=== PATIENT | female | born 1975 | race Caucasian/White ===

== ENCOUNTER 2016-10-19 19:23 | Emergency (ER) | payer MEDICARE, OTHER ==
[~2016-10-19] VITALS: Ht 160 cm; Wt 110.5 kg
[2016-10-19] MEDS ORDERED: BECL8.7A5 IH (20:17)
[2016-10-19] MEDS ORDERED: SIMV-259 PO (20:17)
[2016-10-19] MEDS ORDERED: TRAZ150 PO (20:17)
[2016-10-19] MEDS ORDERED: DIAZ10 PO (20:17)
[2016-10-19] MEDS ORDERED: GABA-531 PO (20:17)
[2016-10-19] MEDS ORDERED: TRAM50TA4 PO (20:17)
[2016-10-19] MEDS ORDERED: ASPI81 PO (20:17)
[2016-10-19 20:31] LABS: BASOPHILS % (AUTO) 0.4 % (0.0-2.0); EOSINOPHILS % (AUTO) 0 % (1.0-6.0); HEMATOCRIT 39.4 % (36-46); HEMOGLOBIN 12.9 g/dL (12.0-16.0); LYMPHOCYTES # (AUTO) 2.9 K/uL (1.0-4.8); LYMPHOCYTES % (AUTO) 29.8 % (22.0-44.0); MEAN CORPUSCULAR HEMOGLOBIN 27.1 pg (26.0-34.0); MEAN CORPUSCULAR HGB CONC 32.8 G/dL (31.0-37.0); MEAN CORPUSCULAR VOLUME 83 fL (80-100); MONOCYTES # (AUTO) 0.6 K/uL (0.1-1.0); NEUTROPHILS # (AUTO) 6.3 K/uL (1.8-7.7); NEUTROPHILS % (AUTO) 63.8 % (40.0-70.0); PLATELET COUNT (AUTO) 253 K/uL (150-450); RED BLOOD CELL COUNT(AUTO) 4.76 MIL/uL (4.00-5.20); RED CELL DISTRIBUTION WIDTH 14.7 % (11.5-14.5); WHITE BLOOD COUNT (AUTO) 9.9 K/uL (4.5-11.0)
[2016-10-19 20:42] LABS: ANION GAP 9 mmol/L (8-16); CALCIUM, TOTAL 9.3 mg/dL (8.8-10.5); CARBON DIOXIDE 29 mmol/L (22-29); CHLORIDE 102 mmol/L (98-107); CREATININE 0.85 mg/dL (0.60-1.30); GLOMERULAR FILTR. RATE CALC > 60 mL/min (>60); SODIUM SERUM 140 mmol/L (136-145); UREA NITROGEN, BLOOD 15 mg/dL (7-18)
[2016-10-19] MEDS ORDERED: KETOROLAC TROMETHAMINE 30 MG/ML VIAL IVP ONE (20:45)
[2016-10-19 20:51] LABS: PROTHROMBIN TIME 10.4 SEC (9.4-11.6)
[2016-10-19 21:03] LABS: B-TYPE NATRIURETIC PEPTIDE 8 pg/mL (0-100)
[2016-10-19 21:06] LABS: ALANINE AMINOTRANSFERASE 27 U/L (12-78); ALBUMIN 3.7 g/dL (3.4-5.0); ASPARTATE AMINOTRANSFERASE 19 U/L (15-37); BILIRUBIN,TOTAL 0.2 mg/dL (0.1-1.0); CREATINE KINASE MB 0.8 ng/mL (0-5); CREATINE KINASE, TOTAL 79 U/L (26-192); TOTAL PROTEIN, SERUM 7.3 g/dL (6.4-8.2)
[2016-10-19 21:25] LABS: APPEARANCE,URINE CLOUDY (CLEAR); GLUCOSE, URINE (UA) NEGATIVE (NEGATIVE); KETONES,URINE NEGATIVE (NEGATIVE); LEUKOCYTE ESTERASE ,URINE NEGATIVE (NEGATIVE); OCCULT BLOOD,URINE NEGATIVE (NEGATIVE); PROTEIN,URINE NEGATIVE (NEGATIVE)
[2016-10-19 21:27] LABS: ADD UA MICROSCOPIC NO
[2016-10-19 22:20] VITALS: BP 104/64
== END 2016-10-19 23:24 | disposition home or self-care (01) ==
LOC: EMS 19:26
DX: R09.1 Pleurisy (principal); E78.00 Pure hypercholesterolemia, unspecified; R61 Generalized hyperhidrosis; Z79.82 Long term (current) use of aspirin; Z88.5 Allergy status to narcotic agent; Z88.2 Allergy status to sulfonamides
CPT/HCPCS: 36415; 71010; 80053; 81003; 82550; 82553; 83880; 84484; 85025; 85379; 85610; 85730; 93005; 96374; 99285; J1885

== ENCOUNTER 2016-12-12 07:57 | Inpatient (IN) | payer MEDICARE, OTHER ==
[~2016-12-12] VITALS: Ht 160 cm; Wt 106.3 kg
[~2016-12-12 07:57] MED LIST: ASPI81 PO; BECL8.7A5 IH; DIAZ10 PO; GABA-531 PO; SIMV-259 PO; TRAM50TA4 PO; TRAZ150 PO
[2016-12-12] MEDS ORDERED: NITR1PAT9 PO (08:02)
[2016-12-12] MEDS ORDERED: METO-323 PO (08:02)
[2016-12-12] MEDS ORDERED: NITROGLYCERIN 2% (1 GM=INCH) PACKET TP ONE (08:15)
[2016-12-12 08:31] LABS: BASOPHILS # (AUTO) 0.05 K/uL (0.00-0.20); BASOPHILS % (AUTO) 0.6 % (0.0-2.0); EOSINOPHILS % (AUTO) 0.05 % (1.0-6.0); HEMATOCRIT 45.2 % (36-46); HEMOGLOBIN 14.5 g/dL (12.0-16.0); LYMPHOCYTES # (AUTO) 2.6 K/uL (1.0-4.8); LYMPHOCYTES % (AUTO) 30.5 % (22.0-44.0); MEAN CORPUSCULAR HEMOGLOBIN 27.1 pg (26.0-34.0); MEAN CORPUSCULAR VOLUME 85 fL (80-100); MONOCYTES # (AUTO) 0.5 K/uL (0.1-1.0); NEUTROPHILS # (AUTO) 5.4 K/uL (1.8-7.7); PLATELET COUNT (AUTO) 231 K/uL (150-450); RED BLOOD CELL COUNT(AUTO) 5.33 MIL/uL (4.00-5.20); RED CELL DISTRIBUTION WIDTH 15.2 % (11.5-14.5); WHITE BLOOD COUNT (AUTO) 8.6 K/uL (4.5-11.0)
[2016-12-12 08:45] LABS: ANION GAP 10 mmol/L (8-16); CARBON DIOXIDE 28 mmol/L (22-29); CHLORIDE 106 mmol/L (98-107); CREATININE 0.93 mg/dL (0.60-1.30); GLOMERULAR FILTR. RATE CALC > 60 mL/min (>60); POTASSIUM 4.3 mmol/L (3.5-5.1); SODIUM SERUM 144 mmol/L (136-145); UREA NITROGEN, BLOOD 14 mg/dL (7-18)
[2016-12-12 08:51] LABS: ALANINE AMINOTRANSFERASE 26 U/L (12-78); ALBUMIN 3.8 g/dL (3.4-5.0); ASPARTATE AMINOTRANSFERASE 18 U/L (15-37); B-TYPE NATRIURETIC PEPTIDE 29 pg/mL (0-100); BILIRUBIN,TOTAL 0.3 mg/dL (0.1-1.0); CREATINE KINASE, TOTAL 63 U/L (26-192); TOTAL PROTEIN, SERUM 7.6 g/dL (6.4-8.2)
[2016-12-12] MEDS ORDERED: OxyCODONE HCL/ACETAMINOPHEN 5-325 MG TABLET PO PRN (09:45)
[2016-12-12] MEDS ORDERED: ACETAMINOPHEN 325 MG TABLET PO PRN (09:45)
[2016-12-12] MEDS ORDERED: ONDANSETRON HCL 4 MG/2 ML VIAL IVP PRN (09:45)
[2016-12-12] MEDS ORDERED: SIMVASTATIN 20 MG TABLET PO SCH (11:11)
[2016-12-12] MEDS ORDERED: BISACODYL 10 MG RECTAL RECTAL SUPPOSITORY PR PRN (11:15)
[2016-12-12] MEDS ORDERED: MAGNESIUM HYDROXIDE SUSPENSION 30 ML UDCUP PO PRN (11:15)
[2016-12-12] MEDS: OxyCODONE HCL/ACETAMINOPHEN 5-325 MG TABLET PO PRN ×3 (11:21→21:25)
[2016-12-12 11:24] VITALS: BP 106/51
[2016-12-12 16:32] VITALS: BP 127/70
[2016-12-12] MEDS: GABAPENTIN 300 MG CAPSULE PO SCH ×2 (16:59→21:23)
[2016-12-12] MEDS: HEPARIN SODIUM,PORCINE 5,000 UNITS/ML VIAL SQ SCH (17:06)
[2016-12-12] MEDS ORDERED: SIMV-261 PO (17:33)
[2016-12-12] MEDS ORDERED: NITR.4 SL (17:33)
[2016-12-12 19:52] VITALS: BP 100/46
[2016-12-12] MEDS ORDERED: PNEUMOCOCCAL VACCINE POLYVALENT 0.5 ML VIAL [PPSV23] IM ONE (20:00)
[2016-12-12] MEDS: PANTOPRAZOLE SODIUM 40 MG DR TABLET PO SCH (21:22)
[2016-12-12] MEDS: ZOLPIDEM TARTRATE 5 MG TABLET PO PRN (21:23)
[2016-12-12] MEDS: DOCUSATE SODIUM 100 MG CAPSULE PO SCH (21:23)
[2016-12-12 23:19] LABS: APPEARANCE,URINE CLOUDY (CLEAR); GLUCOSE, URINE (UA) NEGATIVE (NEGATIVE); KETONES,URINE NEGATIVE (NEGATIVE); LEUKOCYTE ESTERASE ,URINE NEGATIVE (NEGATIVE); OCCULT BLOOD,URINE NEGATIVE (NEGATIVE); PROTEIN,URINE TRACE (NEGATIVE)
[2016-12-12 23:22] LABS: RBC,URINE 0-2 /HPF (0-2); SQUAMOUS EPITHELIAL CELL,UR Few /LPF (None Seen)
[2016-12-12 23:23] LABS: CALCIUM OXALATE CRYSTALS,UR Many /LPF (None Seen)
[2016-12-13] MEDS: HEPARIN SODIUM,PORCINE 5,000 UNITS/ML VIAL SQ SCH ×3 (00:23→15:15)
[2016-12-13 00:26] VITALS: BP 95/63
[2016-12-13] MEDS: ONDANSETRON HCL 4 MG/2 ML VIAL IVP PRN ×2 (00:30→17:01)
[2016-12-13 05:06] VITALS: BP 99/64
[2016-12-13 06:42] LABS: BASOPHILS # (AUTO) 0.04 K/uL (0.00-0.20); BASOPHILS % (AUTO) 0.7 % (0.0-2.0); EOSINOPHILS % (AUTO) 0.06 % (1.0-6.0); HEMATOCRIT 39.9 % (36-46); LYMPHOCYTES # (AUTO) 2.4 K/uL (1.0-4.8); MEAN CORPUSCULAR HEMOGLOBIN 27.8 pg (26.0-34.0); MEAN CORPUSCULAR HGB CONC 32.5 G/dL (31.0-37.0); MEAN CORPUSCULAR VOLUME 86 fL (80-100); MONOCYTES # (AUTO) 0.4 K/uL (0.1-1.0); MONOCYTES % (AUTO) 5.8 % (2.0-9.0); NEUTROPHILS # (AUTO) 3.2 K/uL (1.8-7.7); NEUTROPHILS % (AUTO) 53.5 % (40.0-70.0); PLATELET COUNT (AUTO) 206 K/uL (150-450); RED BLOOD CELL COUNT(AUTO) 4.67 MIL/uL (4.00-5.20); RED CELL DISTRIBUTION WIDTH 14.5 % (11.5-14.5)
[2016-12-13 07:15] LABS: ALANINE AMINOTRANSFERASE 23 U/L (12-78); ALBUMIN 3.4 g/dL (3.4-5.0); ANION GAP 9 mmol/L (8-16); ASPARTATE AMINOTRANSFERASE 13 U/L (15-37); BILIRUBIN,TOTAL 0.2 mg/dL (0.1-1.0); CALCIUM, TOTAL 8.3 mg/dL (8.8-10.5); CARBON DIOXIDE 30 mmol/L (22-29); CHLORIDE 106 mmol/L (98-107); CHOL/HDL RATIO 5.7 (3.9-5.7); CREATININE 0.95 mg/dL (0.60-1.30); GLOMERULAR FILTR. RATE CALC > 60 mL/min (>60); SODIUM SERUM 145 mmol/L (136-145); TOTAL PROTEIN, SERUM 6.4 g/dL (6.4-8.2); UREA NITROGEN, BLOOD 15 mg/dL (7-18)
[2016-12-13 08:14] VITALS: BP 114/63
[2016-12-13] MEDS ORDERED: OxyCODONE HCL/ACETAMINOPHEN 5-325 MG TABLET PO PRN (08:15)
[2016-12-13] MEDS: GABAPENTIN 300 MG CAPSULE PO SCH ×3 (08:19→21:00)
[2016-12-13] MEDS: OxyCODONE HCL/ACETAMINOPHEN 5-325 MG TABLET PO PRN ×3 (08:19→21:02)
[2016-12-13] MEDS: DOCUSATE SODIUM 100 MG CAPSULE PO SCH ×2 (08:21→20:57)
[2016-12-13] MEDS: ASPIRIN 81 MG CHEWABLE TABLET PO SCH (08:21)
[2016-12-13] MEDS: BECLOMETHASONE DIPR 80 MCG/PUFF 8.7 GM INHALER IH SCH (08:21)
[2016-12-13] MEDS: SIMVASTATIN 40 MG TABLET PO SCH (08:21)
[2016-12-13] MEDS ORDERED: PANTOPRAZOLE SODIUM 40 MG DR TABLET PO SCH (09:00)
[2016-12-13] MEDS ORDERED: METOPROLOL SUCCINATE 25 MG ER TABLET PO SCH (09:00)
[2016-12-13 12:10] VITALS: BP 105/65
[2016-12-13 16:28] VITALS: BP 107/66
[2016-12-13] MEDS: ACETAMINOPHEN 325 MG TABLET PO PRN (17:01)
[2016-12-13 19:11] VITALS: BP 98/61
[2016-12-13] MEDS: ZOLPIDEM TARTRATE 5 MG TABLET PO PRN (20:57)
[2016-12-13] MEDS: PANTOPRAZOLE SODIUM 40 MG DR TABLET PO SCH (21:00)
[2016-12-14] VITALS (8 sets, daily range): BP systolic 103–118; BP diastolic 53–74
[2016-12-14] MEDS: HEPARIN SODIUM,PORCINE 5,000 UNITS/ML VIAL SQ SCH ×3 (00:47→15:51)
[2016-12-14] MEDS: ACETAMINOPHEN 325 MG TABLET PO PRN (03:22)
[2016-12-14] MEDS: BECLOMETHASONE DIPR 80 MCG/PUFF 8.7 GM INHALER IH SCH (09:05)
[2016-12-14] MEDS: ASPIRIN 81 MG CHEWABLE TABLET PO SCH (09:05)
[2016-12-14] MEDS: SIMVASTATIN 40 MG TABLET PO SCH (09:05)
[2016-12-14] MEDS: GABAPENTIN 300 MG CAPSULE PO SCH ×3 (09:05→21:03)
[2016-12-14] MEDS: DOCUSATE SODIUM 100 MG CAPSULE PO SCH ×2 (09:05→21:03)
[2016-12-14] MEDS: DIAZEPAM 5 MG TABLET PO PRN ×2 (13:27→17:45)
[2016-12-14] MEDS: ONDANSETRON HCL 4 MG/2 ML VIAL IVP PRN (13:27)
[2016-12-14] MEDS: OxyCODONE HCL/ACETAMINOPHEN 5-325 MG TABLET PO PRN ×3 (13:27→21:50)
[2016-12-14] MEDS: PANTOPRAZOLE SODIUM 40 MG DR TABLET PO SCH (21:03)
[2016-12-14] MEDS: ZOLPIDEM TARTRATE 5 MG TABLET PO PRN (21:25)
[2016-12-15] VITALS (7 sets, daily range): BP systolic 93–121; BP diastolic 54–71
[2016-12-15] MEDS: HEPARIN SODIUM,PORCINE 5,000 UNITS/ML VIAL SQ SCH ×4 (00:25→23:36)
[2016-12-15] MEDS: ACETAMINOPHEN 325 MG TABLET PO PRN (07:01)
[2016-12-15] MEDS: BECLOMETHASONE DIPR 80 MCG/PUFF 8.7 GM INHALER IH SCH (08:13)
[2016-12-15] MEDS: SIMVASTATIN 40 MG TABLET PO SCH (08:13)
[2016-12-15] MEDS: ONDANSETRON HCL 4 MG/2 ML VIAL IVP PRN ×2 (08:13→20:31)
[2016-12-15] MEDS: OxyCODONE HCL/ACETAMINOPHEN 5-325 MG TABLET PO PRN ×2 (08:14→21:59)
[2016-12-15] MEDS: ASPIRIN 81 MG CHEWABLE TABLET PO SCH (08:14)
[2016-12-15] MEDS: DIAZEPAM 5 MG TABLET PO PRN ×2 (08:14→20:01)
[2016-12-15] MEDS: DOCUSATE SODIUM 100 MG CAPSULE PO SCH ×2 (08:14→20:01)
[2016-12-15] MEDS: GABAPENTIN 300 MG CAPSULE PO SCH ×3 (08:14→20:01)
[2016-12-15] MEDS: CefTRIAXone 1 GM/DEXTROSE 50 ML IV SCH ×2 (09:34→20:32)
[2016-12-15 11:22] LABS: APPEARANCE,URINE CLEAR (CLEAR); GLUCOSE, URINE (UA) NEGATIVE (NEGATIVE); KETONES,URINE NEGATIVE (NEGATIVE); LEUKOCYTE ESTERASE ,URINE NEGATIVE (NEGATIVE); OCCULT BLOOD,URINE NEGATIVE (NEGATIVE); PROTEIN,URINE NEGATIVE (NEGATIVE)
[2016-12-15 11:25] LABS: RBC,URINE 0-2 /HPF (0-2); SQUAMOUS EPITHELIAL CELL,UR Few /LPF (None Seen); WBC,URINE 0-2 /HPF (0-5)
[2016-12-15] MEDS: PANTOPRAZOLE SODIUM 40 MG DR TABLET PO SCH (19:57)
[2016-12-15] MEDS: ZOLPIDEM TARTRATE 5 MG TABLET PO PRN (22:00)
[2016-12-16 00:21] VITALS: BP 110/71
[2016-12-16 05:45] VITALS: BP 101/55
[2016-12-16 07:08] VITALS: BP 101/64
[2016-12-16] MEDS: DOCUSATE SODIUM 100 MG CAPSULE PO SCH (08:15)
[2016-12-16] MEDS: ASPIRIN 81 MG CHEWABLE TABLET PO SCH (08:15)
[2016-12-16] MEDS: BECLOMETHASONE DIPR 80 MCG/PUFF 8.7 GM INHALER IH SCH (08:16)
[2016-12-16] MEDS: HEPARIN SODIUM,PORCINE 5,000 UNITS/ML VIAL SQ SCH ×2 (08:18→16:23)
[2016-12-16] MEDS: OxyCODONE HCL/ACETAMINOPHEN 5-325 MG TABLET PO PRN (08:19)
[2016-12-16] MEDS: GABAPENTIN 300 MG CAPSULE PO SCH ×2 (08:22→16:23)
[2016-12-16] MEDS: SIMVASTATIN 40 MG TABLET PO SCH (09:00)
[2016-12-16] MEDS ORDERED: SESTAMIBI TC99M/UD ISOTOPE 1 EA INJ INJ ONE ×2 (09:40→12:40)
[2016-12-16] MEDS: CefTRIAXone 1 GM/DEXTROSE 50 ML IV SCH (10:10)
[2016-12-16 12:00] VITALS: BP 99/65
[2016-12-16] MEDS ORDERED: REGADENOSON 0.4 MG/5 ML PF SYRINGE IVP ONE ×2 (12:38→18:49)
[2016-12-16 12:46] VITALS: BP 102/59
[2016-12-16] MEDS: DIAZEPAM 5 MG TABLET PO PRN (14:53)
[2016-12-16 16:20] VITALS: BP 95/47
[2016-12-16] MEDS: ONDANSETRON HCL 4 MG/2 ML VIAL IVP PRN (16:34)
[2016-12-23 10:23] LABS: GLUCOSE,POINT OF CARE 155 MG/DL (70-110)
== END 2016-12-16 18:50 | disposition home or self-care (01) | DRG 311 ==
LOC: EMS 08:00 → 5S 10:05
PROVIDERS: ADMIT Internal Medicine; ATTEND Internal Medicine
PROC: 3E0234Z Introduction of Serum, Toxoid and Vaccine into Muscle, Percutaneous Approach (ICD-10-PCS; principal; 2016-12-13)
DX: I20.0 Unstable angina (principal); I10 Essential (primary) hypertension; E78.5 Hyperlipidemia, unspecified; M79.7 Fibromyalgia; M48.00 Spinal stenosis, site unspecified; E78.00 Pure hypercholesterolemia, unspecified; Z88.2 Allergy status to sulfonamides; Z79.899 Other long term (current) drug therapy; Z88.5 Allergy status to narcotic agent; Z98.890 Other specified postprocedural states; Z79.82 Long term (current) use of aspirin; Z79.1 Long term (current) use of non-steroidal anti-inflammatories (NSAID); Z23 Encounter for immunization; Z90.710 Acquired absence of both cervix and uterus
CPT/HCPCS: 78452; 82962; 83735; 84443; 87040; 90471; 93005; 93017; 93306; 99285; A9500; J0696; J1644; J2405; J2785; J3535